=== PATIENT | male | born 1965 | race Caucasian/White ===

== ENCOUNTER 2019-12-20 10:22 | Outpatient (CLI) | payer OTHER ==
[2019-12-20] MEDS ORDERED: POLY17PO5 PO (10:50)
[2019-12-20] MEDS ORDERED: GARL1TAB2 PO (10:50)
[2019-12-20] MEDS ORDERED: IBUP-1902 PO (10:50)
== END 2019-12-20 23:59 | disposition home or self-care (01) ==
LOC: STAR 10:22
PROVIDERS: ATTEND Orthopaedic Surgery
DX: Z11.59 Encounter for screening for other viral diseases (principal)
CPT/HCPCS: U0001-CS

== ENCOUNTER 2019-12-25 11:07 | Day surgery (SDC) | payer OTHER ==
[~2019-12-25] VITALS: Ht 182.9 cm; Wt 126.0 kg
[~2019-12-25 11:07] MED LIST: GARL1TAB2 PO; IBUP-1902 PO; POLY17PO5 PO
[2019-12-25] MEDS ORDERED: LACTATED RINGERS 1,000 ML IV SCH (11:23)
[2019-12-25] MEDS ORDERED: CHLORHEXIDINE 15 ML UDC MM STA (11:23)
[2019-12-25] MEDS ORDERED: FENTANYL PF 100 MCG/2ML ONE (12:44)
[2019-12-25] MEDS ORDERED: MIDAZOLAM 1 MG/ML, 2ML ONE (12:44)
[2019-12-25] MEDS ORDERED: ROPIvacaine/PF 0.5%, 30 ML ONE (13:14)
[2019-12-25] MEDS ORDERED: LIDOCAINE-MPF 1%, 5ML ONE (13:14)
[2019-12-25] MEDS ORDERED: OXYcodone 5 MG/5 ML ORAL.SOL UDC PO PRN (14:00)
[2019-12-25] MEDS ORDERED: ACETAMINOPHEN 325 MG TABLET PO PRN (14:00)
[2019-12-25] MEDS ORDERED: FENTANYL PF 100 MCG/2ML IV PRN (14:00)
[2019-12-25] MEDS ORDERED: MEPERIDINE/PF 25MG/0.5ML IVPush PRN (14:00)
[2019-12-25] MEDS ORDERED: PROMETHAZINE 25 MG/ML, 1ML IVPush PRN (14:00)
[2019-12-25] MEDS ORDERED: LORazepam 2 MG/ML, 1ML IVPush PRN (14:00)
[2019-12-25] MEDS ORDERED: ONDANSETRON 2MG/ML, 2ML ONE (14:11)
[2019-12-25] MEDS ORDERED: KETOROLAC 30 MG/1 ML ONE (14:11)
[2019-12-25] MEDS ORDERED: PROPOFOL 10 MG/ML, 20ML ONE (14:11)
[2019-12-25] MEDS ORDERED: LIDOCAINE-MPF 2% ,5ML ONE (14:11)
[2019-12-25] MEDS ORDERED: DEXAMETHASONE 4 MG/ML, 1ML ONE (14:11)
[2019-12-25] MEDS ORDERED: CEFAZOLIN 1,000 MG ONE ×2 (14:11)
[2019-12-25] MEDS ORDERED: LABETALOL 5MG/ML, 20ML ONE (14:22)
[2019-12-25] MEDS: LABETALOL 5MG/ML, 20ML IV PRN ×4 (14:25→14:55)
[2019-12-25] MEDS ORDERED: ACETAMINOPHEN 650 MG/20.3 ML UDC ONE (14:48)
== END 2019-12-25 16:05 | disposition home or self-care (01) ==
LOC: OUT 11:07
PROVIDERS: ATTEND Orthopaedic Surgery
DX: S83.511A Sprain of anterior cruciate ligament of right knee, initial encounter (principal); S83.241A Other tear of medial meniscus, current injury, right knee, initial encounter; S83.281A Other tear of lateral meniscus, current injury, right knee, initial encounter; M65.861 Other synovitis and tenosynovitis, right lower leg; M11.261 Other chondrocalcinosis, right knee; M17.12 Unilateral primary osteoarthritis, left knee; I10 Essential (primary) hypertension; E66.9 Obesity, unspecified; Z87.891 Personal history of nicotine dependence; Z91.030 Bee allergy status; Z82.49 Family history of ischemic heart disease and other diseases of the circulatory system; X58.XXXA Exposure to other specified factors, initial encounter; Y93.89 Activity, other specified; Y92.89 Other specified places as the place of occurrence of the external cause; Y99.8 Other external cause status
CPT/HCPCS: 29880; J0690; J1100; J1885; J2250; J2405; J2704; J2795; J3010; J7120; U0001-CS